=== PATIENT | female | born 1935 | race American Indian/Alaskan Native ===

== ENCOUNTER 2021-06-08 09:02 | Inpatient (IN) | payer MEDICARE ==
--- NOTE | 2021-06-08 09:32 | Emergency Department Report ---
Blank Doc - Documentation Documentation: [facility] Consult Note # Demographics Consult Type: Acute Stroke Level 2 (4.5-24 hrs) Patient Location: Emergency Room First Name: Sharona Last Name: Tres Date of : 1935 Age: 85 Gender: Female Time of Initial Page ( Time): 06/08/2021, 09:11 Time of Return Call ( Time): 06/08/2021, 09:11 # HPI History: 85yo F presents ith AMS that was noted this AM. She was found with low glucose of 40. got some food and glucose improved to the 60s. # Scores Time of exam and NIHSS ( Time): 06/08/2021, 09:27 Level of Consciousness 1a: [0] = Alert; keenly responsive LOC Questions 1b: [2] = Answers neither correctly LOC Commands 1c: [2] = Performs neither correctly Best Gaze 2: [0] = Normal Visual 3: [0] = No visual loss Facial Palsy 4: [0] = Normal symmetrical movements Motor Arm Left 5a: [1] = Drift Motor Arm Right 5b: [1] = Drift Motor Leg Left 6a: [3] = No effort against gravity Motor Leg Right 6b: [3] = No effort against gravity Limb Ataxia 7: [0] = Absent Sensory 8: [0] = Normal Best Language 9: [2] = Severe aphasia Dysarthria 10: [1] = Pvpl-ay-cmcgcedx dysarthria Extinction and Inattention 11: [0] = No abnormality NIHSS Total: 15 # Exam SBP: 90 DBP: 60 Language: only yelling "there is a god" # PMH-FH-SH Past Medical History: Diabetes hypertension # Data Head CT: no bleed preliminarily reviewed by me, please refer to radiology read for official reading # Assessment Impression: Altered Mental Status hypoglycemia likely with prolonged encephalopathy. no lateralized deficits to suggest sttroke at this time # Plan Thrombolytic/Intervention: NOT IV Thrombolysis or IA Intervention candidate Thrombolytic Exclusion (< 3 hour window): time of onset unclear Thrombolytic Exclusion: > 4.5 hours Thrombolytic/Intraarterial Exclusion: IV thrombolytic and IA intervention considered but not recommended as this patient's symptoms are not clinically consistent with an assumed diagnosis of stroke Additional Recommendations: Metabolic and infectious evaluation. If no cause found then MRI brain for further eval is reasonable # Logistics Telemedicine: Interactive 2 way audio and visual telecommunication technology was utilized during this visit
--- NOTE | 2021-06-08 09:35 | Cat Scan Report ---
CT HEAD WITHOUT CONTRAST HISTORY: CODE STROKE CALL [phone] WEAKNESS, AMS, LOW BLOOD SUGAR. TECHNIQUE: Axial imaging performed from the skull apex through the skull base without the use of con trast. All CT scans at this location are performed using CT dose reduction for ALARA by means of aut omated exposure control. COMPARISON: None FINDINGS: Parenchyma: No acute intracranial hemorrhage or parenchymal abnormality. Mild diffuse volume loss ap pears age appropriate. Mild hypoattenuation throughout the white matter is noted and consistent with chronic microvascular ischemic disease. Ventricles: There is mild diffuse brain atrophy with commensurate ventricular enlargement which is l ikely age appropriate. Soft tissues: Soft tissues including the orbits appear normal. Bones: No acute osseous abnormality. Sinuses: Moderate chronic mucosal thickening is noted in the left axillary sinus and the remaining s inuses and mastoid air cells are clear. IMPRESSION: No acute abnormality. Age-related findings as described. Chronic left maxillary sinus. CODE STROKE: Time of Communication (INDEPENDENT DRIVER/CDT): 0830 hours Licensed Practitioner Receiving Report: GABY Vasquez Signer Name: Aleksey Hays Jr, MD Signed: 06/08/2021 9:31 AM Workstation Name: [id number]
--- NOTE | 2021-06-08 09:44 | Emergency Department Report ---
HPI - General Chief Complaint: Neuro Symptoms/Deficit Time Seen by Provider: 06/08/21 09:05 - HPI HPI: 85-year-old female with history of hypertension diabetes mellitus is brought in by EMS with acute onset of altered mental status after the patient was found down on the ground by her family. Her last known normal time was apparently sometime last night. Her baseline mental status is speaking in full sentences normally. Family called because the patient was speaking incoherently and not making sense. According to the EMS report, the initial glucose was 66. She was given 1 amp of D50 with improvement to the blood sugar to 501 and then 193. This did not affect the patient's altered mental status or inability to follow commands including her mental/neurologic condition.. The patient intermittently speaks in full sentences and tells me her full name but cannot answer any other questions. Further details of the HPI are thus limited due to the patient's current clinical condition ED Past Medical Hx - Past Medical History Previous Medical History?: Yes Hx Hypertension: Yes Hx Diabetes: Yes - Surgical History Past Surgical History?: No ED Review of Systems ROS: Stated complaint: STROKE Other details as noted in HPI Comment: Unobtainable due to pts medical conditions Physical Exam - Physical Exam Vital Signs: Vital Signs 06/08/21 09:04 Pulse Rate 82 Respiratory 16 Rate Blood Pressure 108/67 [Left] O2 Sat by Pulse 96 Oximetry Physical Exam: GENERAL: Well developed and well nourished. In no acute distress. Very confused and speaking incoherently. HEAD: Normocephalic. No obvious signs of trauma. ENT: Dry mucous membranes. EYES: Extraocular movements are intact. Pupils are equal round and reactive to light bilaterally NECK: Supple. Full ROM is intact. Trachea is midline. LUNGS: Nonlabored breathing. Equal chest rise bilaterally. Clear to auscultation bilaterally. CARDIOVASCULAR: Regular rate and rhythm. No murmurs or rubs. VASCULAR: Cap refill < 2 seconds ABDOMEN: Abdomen is distended but soft. There is no significant tenderness, guarding, or rebound. SKIN: Skin is warm and dry NEURO: Patient is awake and alert, but very confused and speaking incoherently. She is not following commands which makes neurologic assessment very difficult. She is holding her hands out in front of her with rigidity of the bilateral arms. There is no obvious facial droop. Unable to assess motor function but she is seen moving all 4 extremities. NIH stroke scale score is 5. BACK/SPINE: No midline tenderness or step-offs of the C/T/L spine. No costovertebral angle tenderness. ED Course Vital Signs 06/08/21 09:04 Pulse Rate 82 Respiratory 16 Rate Blood Pressure 108/67 [Left] O2 Sat by Pulse 96 Oximetry ED Medical Decision Making - Lab Data Result diagrams: 06/08/21 09:47 06/08/21 09:47 Lab Results 06/08/21 06/08/21 06/08/21 Range/Units 09:47 09:47 09:47 WBC 5.8 (4.5-11.0) K/mm3 RBC 3.56 L (3.65-5.03) M/mm3 Hgb 12.4 (11.8-15.2) gm/dl Hct 36.1 (35.5-45.6) % MCV 101 H (84-94) fl MCH 35 H (28-32) pg MCHC 34 (32-34) % RDW 13.3 (13.2-15.2) % Plt Count 173 (140-440) K/mm3 Lymph % (Auto) 8.6 L (13.4-35.0) % [place] % (Auto) 8.5 H (0.0-7.3) % Eos % (Auto) 1.6 (0.0-4.3) % Baso % (Auto) 0.3 (0.0-1.8) % Lymph # (Auto) 0.5 L (1.2-5.4) K/mm3 [place] # (Auto) 0.5 (0.0-0.8) K/mm3 Eos # (Auto) 0.1 (0.0-0.4) K/mm3 Baso # (Auto) 0.0 (0.0-0.1) K/mm3 Seg Neutrophils % 81.0 H (40.0-70.0) % Seg Neutrophils # 4.7 (1.8-7.7) K/mm3 PT 13.4 (12.2-14.9) Sec. INR 0.97 (0.87-1.13) APTT 32.6 (24.2-36.6) Sec. Thrombin Time 16.7 (15.1-19.6) Sec. Sodium 123 L (137-145) mmol/L Potassium 5.3 H (3.6-5.0) mmol/L Chloride 84.3 L (98-107) mmol/L Carbon Dioxide 28 (22-30) mmol/L Anion Gap 16 mmol/L BUN 33 H (9-20) mg/dL Creatinine 0.6 L (0.8-1.3) mg/dL Estimated GFR > 60 ml/min BUN/Creatinine Ratio 55 % Glucose 220 H (75-100) mg/dL Calcium 10.0 (8.4-10.2) mg/dL Magnesium (1.7-2.3) mg/dL Total Bilirubin 0.40 (0.1-1.2) mg/dL AST 63 H (5-40) units/L ALT 58 H (7-56) units/L Alkaline Phosphatase 116 (35-129) units/L Ammonia (25-60) umol/L Total Creatine Kinase 256 H (55-170) units/L CK-MB (CK-2) 14.2 H (0.0-4.0) ng/mL CK-MB (CK-2) Rel Index 5.5 H (0-4) Troponin T 0.032 H (0.00-0.029) ng/mL Total Protein 7.7 (6.3-8.2) g/dL Albumin 4.3 (3.9-5) g/dL Albumin/Globulin Ratio 1.3 % Triglycerides 57 (2-149) mg/dL Cholesterol 166 (50-199) mg/dL LDL Cholesterol Direct 63 (50-130) mg/dL HDL Cholesterol 108 H (40-59) mg/dL Cholesterol/HDL Ratio 1.53 % Lipase (13-60) units/L Salicylates (2.8-20.0) mg/dL Acetaminophen (10.0-30.0) ug/mL Plasma/Serum Alcohol (0-0.07) % 06/08/21 06/08/21 06/08/21 Range/Units 09:47 09:47 09:47 WBC (4.5-11.0) K/mm3 RBC (3.65-5.03) M/mm3 Hgb (11.8-15.2) gm/dl Hct (35.5-45.6) % MCV (84-94) fl MCH (28-32) pg MCHC (32-34) % RDW (13.2-15.2) % Plt Count (140-440) K/mm3 Lymph % (Auto) (13.4-35.0) % [place] % (Auto) (0.0-7.3) % Eos % (Auto) (0.0-4.3) % Baso % (Auto) (0.0-1.8) % Lymph # (Auto) (1.2-5.4) K/mm3 [place] # (Auto) (0.0-0.8) K/mm3 Eos # (Auto) (0.0-0.4) K/mm3 Baso # (Auto) (0.0-0.1) K/mm3 Seg Neutrophils % (40.0-70.0) % Seg Neutrophils # (1.8-7.7) K/mm3 PT (12.2-14.9) Sec. INR (0.87-1.13) APTT (24.2-36.6) Sec. Thrombin Time (15.1-19.6) Sec. Sodium (137-145) mmol/L Potassium (3.6-5.0) mmol/L Chloride (98-107) mmol/L Carbon Dioxide (22-30) mmol/L Anion Gap mmol/L BUN (9-20) mg/dL Creatinine (0.8-1.3) mg/dL Estimated GFR ml/min BUN/Creatinine Ratio % Glucose (75-100) mg/dL Calcium (8.4-10.2) mg/dL Magnesium 1.80 (1.7-2.3) mg/dL Total Bilirubin (0.1-1.2) mg/dL AST (5-40) units/L ALT (7-56) units/L Alkaline Phosphatase (35-129) units/L Ammonia 32.0 (25-60) umol/L Total Creatine Kinase (55-170) units/L CK-MB (CK-2) (0.0-4.0) ng/mL CK-MB (CK-2) Rel Index (0-4) Troponin T (0.00-0.029) ng/mL Total Protein (6.3-8.2) g/dL Albumin (3.9-5) g/dL Albumin/Globulin Ratio % Triglycerides (2-149) mg/dL Cholesterol (50-199) mg/dL LDL Cholesterol Direct (50-130) mg/dL HDL Cholesterol (40-59) mg/dL Cholesterol/HDL Ratio % Lipase 12 L (13-60) units/L Salicylates (2.8-20.0) mg/dL Acetaminophen (10.0-30.0) ug/mL Plasma/Serum Alcohol < 0.01 (0-0.07) % 06/08/21 06/08/21 Range/Units 09:47 09:47 WBC (4.5-11.0) K/mm3 RBC (3.65-5.03) M/mm3 Hgb (11.8-15.2) gm/dl Hct (35.5-45.6) % MCV (84-94) fl MCH (28-32) pg MCHC (32-34) % RDW (13.2-15.2) % Plt Count (140-440) K/mm3 Lymph % (Auto) (13.4-35.0) % [place] % (Auto) (0.0-7.3) % Eos % (Auto) (0.0-4.3) % Baso % (Auto) (0.0-1.8) % Lymph # (Auto) (1.2-5.4) K/mm3 [place] # (Auto) (0.0-0.8) K/mm3 Eos # (Auto) (0.0-0.4) K/mm3 Baso # (Auto) (0.0-0.1) K/mm3 Seg Neutrophils % (40.0-70.0) % Seg Neutrophils # (1.8-7.7) K/mm3 PT (12.2-14.9) Sec. INR (0.87-1.13) APTT (24.2-36.6) Sec. Thrombin Time (15.1-19.6) Sec. Sodium (137-145) mmol/L Potassium (3.6-5.0) mmol/L Chloride (98-107) mmol/L Carbon Dioxide (22-30) mmol/L Anion Gap mmol/L BUN (9-20) mg/dL Creatinine (0.8-1.3) mg/dL Estimated GFR ml/min BUN/Creatinine Ratio % Glucose (75-100) mg/dL Calcium (8.4-10.2) mg/dL Magnesium (1.7-2.3) mg/dL Total Bilirubin (0.1-1.2) mg/dL AST (5-40) units/L ALT (7-56) units/L Alkaline Phosphatase (35-129) units/L Ammonia (25-60) umol/L Total Creatine Kinase (55-170) units/L CK-MB (CK-2) (0.0-4.0) ng/mL CK-MB (CK-2) Rel Index (0-4) Troponin T (0.00-0.029) ng/mL Total Protein (6.3-8.2) g/dL Albumin (3.9-5) g/dL Albumin/Globulin Ratio % Triglycerides (2-149) mg/dL Cholesterol (50-199) mg/dL LDL Cholesterol Direct (50-130) mg/dL HDL Cholesterol (40-59) mg/dL Cholesterol/HDL Ratio % Lipase (13-60) units/L Salicylates < 0.3 L (2.8-20.0) mg/dL Acetaminophen 5.0 L (10.0-30.0) ug/mL Plasma/Serum Alcohol (0-0.07) % - EKG Data -: EKG Interpreted by Mo - EKG Data 06/08/21 12:09 Normal sinus rhythm. Normal axis. Right bundle branch block. First-degree AV block. Otherwise normal intervals. RBBB associated changes. Otherwise no significant ST segment or T wave abnormalities. - Radiology Data CHEST 1 VIEW INDICATION: stroke. COMPARISON: None FINDINGS: Support devices: None. Heart: Cardiomegaly. Lungs/Pleura: No acute air space or interstitial disease. Additional findings: None. IMPRESSION: Moderate cardiomegaly. Signer Name: Aleksey Hays Jr, MD Signed: 06/08/2021 10:13 AM Workstation Name: [id number] R pelvis 1-2V INDICATION / CLINICAL INFORMATION: fall. Pelvic pain COMPARISON: None available. FINDINGS: BONES/JOINT(S): No acute fracture or subluxation. Mild bilateral hip DJD. SOFT TISSUES: Scattered atherosclerotic vascular calcifications. ADDITIONAL FINDINGS: None. Signer Name: Ismael Arellano MD Signed: 06/08/2021 12:03 PM Workstation Name: [id number] DUPLEX DOPPLER LOWER EXTREMITY VEINS, BILATERAL INDICATION / CLINICAL INFORMATION: Bilateral lower extremity swelling. TECHNIQUE: Duplex doppler imaging was performed through the veins of both lower extremities using venous compression and other maneuvers. COMPARISON: None available. FINDINGS: RIGHT COMMON FEMORAL VEIN: Negative. RIGHT FEMORAL VEIN: Negative. RIGHT POPLITEAL V EIN: Negative. RIGHT CALF VEINS: Negative. LEFT COMMON FEMORAL VEIN: Negative. LEFT FEMORAL VEIN: Negative. LEFT POPLITEAL VEIN: Negative. LEFT CALF VEINS: Negative. ADDITIONAL FINDINGS: None. IMPRESSION: 1. No sonographic evidence for DVT in either lower extremity. Signer Name: Ron Majano MD Signed: 06/08/2021 10:42 AM Workstation Name: [id number] CT HEAD WITHOUT CONTRAST HISTORY: CODE STROKE CALL [phone] WEAKNESS, AMS, LOW BLOOD SUGAR. TECHNIQUE: Axial imaging performed from the skull apex through the skull base without the use of contrast. All CT scans at this location are performed using CT dose reduction for ALARA by means of automated exposure control. COMPARISON: None FINDINGS: Parenchyma: No acute intracranial hemorrhage or parenchymal abnormality. Mild diffuse volume loss appears age appropriate. Mild hypoattenuation throughout the white matter is noted and cons istent with chronic microvascular ischemic disease. Ventricles: There is mild diffuse brain atrophy with commensurate ventricular enlargement which is likely age appropriate. Soft tissues: Soft tissues including the orbits appear normal. Bones: No acute osseous abnormality. Sinuses: Moderate chronic mucosal thickening is noted in the left axillary sinus and the remaining sinuses and mastoid air cells are clear. IMPRESSION: No acute abnormality. Age-related findings as described. Chronic left maxillary sinus. CODE STROKE: Time of Communication (FINISHED GOODS PLANNER/CDT): 0830 hours Licensed Practitioner Receiving Report: GABY Vasquez Signer Name: Aleksey Hays Jr, MD Signed: 06/08/2021 8:31 AM Workstation Name: [id number] CT CERVICAL SPINE WITHOUT CONTRAST INDICATION / CLINICAL INFORMATION: stroke/fall . TECHNIQUE: Axial CT images were obtained through the cervical spine. Sagittal and coronal reformatted images were produced. All CT scans at this location are performed using CT dose reduction for ALARA by means of automated exposure control. COMPARISON: None available. FINDINGS: ALIGNMENT: No significant abnormality. VERTEBRAE: No indication of fracture or bone destruction. Widespread degenerative changes as described below. DISC SPACES: Loss of disc height is a prominent finding at the C5-6, C6-7 and C7-T1 levels. INDIVIDUAL LEVEL ANALYSIS: C2-3:No abnormality. C3-4: There is a moderate central and right paracentral disc herniation with thecal sac deformity. Mild bilateral neuroforaminal narrowing is noted. C4-5: Posterior disc osteophyte complex flattens the thecal sac slightly. uncovertebral arthritic change contributes to moderate right-sided and mild left-sided neuroforaminal stenosis. C5-6:Disc desiccation is noted. Loss of disc height and disc vacuum phenomena are evident. Posterior osteophyte lateralizes to the left contributing to left lateral recess stenosis. Moderate bilateral neuroforaminal narrowing is observed. C6-7: Loss of disc height and disc vacuum phenomena are noted. Small posterior osteophyte is observed. Prominent anterior osteophyte formation is evident. uncovertebral arthritic change contribute to severe right-sided and moderate left-sided foraminal stenosis. C7-T1: Loss of disc height is noted. Anterior osteophyte formation is observed. Central spinal canal and neuroforamina are adequately maintained. CRANIOCERVICAL JUNCTION:No signif icant abnormality. SPINAL CANAL: Central spinal canal is mildly narrowed at C3- 4 where moderate central and right paracentral disc herniation is demonstrated and at the C4-5 where large posterior osteophyte lateralizes to the left. PARASPINAL SOFT TISSUES: No significant abnormality. LUNG APICES: No significant abnormality of visualized lungs. IMPRESSION: 1. Widespread cervical spondylosis as described level bilevel above. 2. No indication of fracture or bone destruction. Signer Name: Toñito Cavanaugh MD Signed: 06/08/2021 8:47 AM Workstation Name: [id number] - Medical Decision Making 85-year-old female with reported history of hypertension and diabetes brought in by EMS after she was found down on the ground with altered mental status. She was apparently seen last normal sometime last night. The patient was profoundly altered when discovered by her family. Her initial glucose was apparently 66 when EMS arrived and improved to the 500s and then high 100s after 1 amp of D50. On initial assessment, the patient is afebrile and with normal vital signs. She is profoundly altered and speaking incoherently. She only partially and intermittently follows commands. She is holding her extremities stiff in front of her. Given that she is uncooperative with exam this severely limits the neurologic exam. Nonetheless, given how altered she is in the fact that this is apparently acute, stroke alert orders were initiated immediately in addition to tox/metabolic and syncope work-up. She does have right greater than left lower extremity edema. Her abdomen is distended but soft. There is no mid spine or CVA tenderness. Lungs are clear to auscultation. She does have very dry mucous membranes. Given that she is elderly and may have suffered a fall, we will obtain CT of the head and C-spine to rule out traumatic injury including ICH and cervical fracture. At 0931, Dr. Hays of radiology called to state that CT of the head and C-spine are negative for any acute abnormalities. On repeat assessment at 10 AM, the patient is now more responsive and follows most commands. On repeat assessment at 1015, the patient has become very agitated and is yelling and attempting to pull off her monitors and lines. Given that she is a danger to herself she was administered 5 mg of IM Haldol and 25 mg of IM Benadryl. The patient's labs have partially resulted and reveal no significant leukocytosis or anemia. She has several electrolyte abnormalities including hyponatremia with sodium of 123, hyperkalemia with potassium of 5.3, elevated BUN of 33 with creatinine of 0.6 most consistent with severe dehydration and poor volume status. She has minor elevations in AST and ALT as well. Alk phos is normal. Her troponin is very mildly elevated at 0.032. Given that there is no history of the patient having chest pain and there is evidence of very poor fluid status, I suspect that her troponin leak is a type II troponin leak secondary to her current condition. We will give full-strength aspirin. EKG was ordered and I asked the nurse to obtain it soon as possible. At [address] Fiore of teleneurology. She has seen and examined the patient and agrees that although stroke cannot be ruled out completely, her presentation is more consistent with a metabolic encephalopathy given that she has no lateral signs. Not eligible for TPA. At 11:20 AM, I spoke to the patient's daughter Mary Anne. She provides further history and states that this morning she found her mom on the commode with altered mental status and acting very bizarre. She does have a history of dementia and frequent UTIs and has had issues with worsening mental status due to UTIs in the past. When she got her mom with altered mental status, she was able to get her mom to drink some juice and measured her blood sugar and it was 40. She was given more juice and food and repeat blood sugar was 35. Several hours went by and they rechecked it and it was 40. For this reason EMS was then called and when they arrived there initial blood glucose was 60. In addition to insulin the patient does take Metformin and glipizide as well. With this additional information, it seems that her altered mental status is much more likely to be secondary to hypoglycemia and metabolic disturbance due to severe dehydration. We will continue to monitor the patient's glucose every hour. She will be admitted to the hospitalist for further work-up and management. Uri nalysis is still pending. On repeat assessment at 11:35 AM, the patient is now resting comfortably in bed. She is somnolent but arouses to loud voice. She now answers my questions and follows my commands. She denies any pain, shortness of breath, cough, abdominal pain, nausea, or any other symptoms. She is moving all 4 extremities with normal strength and says she has normal sensation. At 12:07 PM I spoke with Dr. Ahn, the only call hospitalist regarding the case. He accepts the patient for admission and will assume care. Critical Care Time: Yes Critical care time in (mins) excluding proc time.: 80 Critical care attestation.: If time is entered above; I have spent that time in minutes in the direct care of this critically ill patient, excluding procedure time. Critical care time was spent in the evaluation/assessment, work-up, and management of possible stroke with altered mental status, hypoglycemia with frequent glucose monitoring, severe dehydration and electrolyte abnormalities requiring IV fluids, altered mental status with agitated behavior requiring IV Haldol, coordination with specialist, and frequent reevaluation and reassessment. ED Disposition Clinical Impression: Hypoglycemia, Altered mental state, Elevated troponin, Dehydration, Hyponatremi a, Hyperkalemia, Dementia, Transaminitis Disposition: DC-09 OP ADMIT IP TO THIS HOSP Is pt being admited?: Yes Condition: Fair
--- NOTE | 2021-06-08 09:52 | Cat Scan Report ---
CT CERVICAL SPINE WITHOUT CONTRAST INDICATION / CLINICAL INFORMATION: stroke/fall . TECHNIQUE: Axial CT images were obtained through the cervical spine. Sagittal and coronal reformatted images wer e produced. All CT scans at this location are performed using CT dose reduction for ALARA by means of automated exposure control. COMPARISON: None available. FINDINGS: ALIGNMENT: No significant abnormality. VERTEBRAE: No indication of fracture or bone destruction. Widespread degenerative changes as describe d below. DISC SPACES: Loss of disc height is a prominent finding at the C5-6, C6-7 and C7-T1 levels. INDIVIDUAL LEVEL ANALYSIS: C2-3:No abnormality. C3-4: There is a moderate central and right paracentral disc herniation with thecal sac deformity. Mi ld bilateral neuroforaminal narrowing is noted. C4-5: Posterior disc osteophyte complex flattens the thecal sac slightly. uncovertebral arthritic kel[place] nge contributes to moderate right-sided and mild left-sided neuroforaminal stenosis. C5-6:Disc desiccation is noted. Loss of disc height and disc vacuum phenomena are evident. Posterior osteophyte lateralizes to the left contributing to left lateral recess stenosis. Moderate bilateral n euroforaminal narrowing is observed. C6-7: Loss of disc height and disc vacuum phenomena are noted. Small posterior osteophyte is observed . Prominent anterior osteophyte formation is evident. uncovertebral arthritic change contribute to se juno right-sided and moderate left-sided foraminal stenosis. C7-T1: Loss of disc height is noted. Anterior osteophyte formation is observed. Central spinal canal and neuroforamina are adequately maintained. CRANIOCERVICAL JUNCTION:No significant abnormality. SPINAL CANAL: Central spinal canal is mildly narrowed at C3-4 where moderate central and right parace ntral disc herniation is demonstrated and at the C4-5 where large posterior osteophyte lateralizes to the left. PARASPINAL SOFT TISSUES: No significant abnormality. LUNG APICES: No significant abnormality of visualized lungs. IMPRESSION: 1. Widespread cervical spondylosis as described level bilevel above. 2. No indication of fracture or bone destruction. Signer Name: Toñito Cavanaugh MD Signed: 06/08/2021 9:47 AM Workstation Name: [id number]
[2021-06-08 10:03] LABS: Basophils % (Auto) 0.3 % (0.0-1.8); Eosinophils # (Auto) 0.1 K/mm3 (0.0-0.4); Eosinophils % (Auto) 1.6 % (0.0-4.3); Hematocrit 36.1 % (35.5-45.6); Hemoglobin 12.4 gm/dl (11.8-15.2); Lymphocytes # (Auto) 0.5 K/mm3 (1.2-5.4); Lymphocytes % (Auto) 8.6 % (13.4-35.0); Mean Corpuscular HGB Conc 34 % (32-34); Mean Corpuscular Volume 101 fl (84-94); Monocytes # (Auto) 0.5 K/mm3 (0.0-0.8); Monocytes % (Auto) 8.5 % (0.0-7.3); Platelet Count 173 K/mm3 (140-440); Red Blood Count 3.56 M/mm3 (3.65-5.03); Red Cell Distribution Width 13.3 % (13.2-15.2)
[2021-06-08] MEDS ORDERED: diphenhydrAMINE 50 MG/ML VIAL ONE (10:18)
[2021-06-08] MEDS ORDERED: HALOPERIDOL LACTATE 5 MG/1 ML INJ ONE (10:18)
[2021-06-08 10:24] LABS: Creatine Kinase MB 14.2 ng/mL (0.0-4.0)
[2021-06-08 10:25] LABS: INR 0.97 (0.87-1.13); Partial Thromboplastin Time 32.6 Sec. (24.2-36.6)
[2021-06-08 10:26] LABS: Alanine Aminotransferase 58 units/L (7-56); Albumin 4.3 g/dL (3.9-5); Blood Urea Nitrogen 33 mg/dL (9-20); Hemolysis Index 5
[2021-06-08 10:28] LABS: Thrombin Time 16.7 Sec. (15.1-19.6)
[2021-06-08 10:34] LABS: BUN/Creatinine Ratio 55
[2021-06-08 10:37] LABS: Chol/HDL Ratio 1.53 %; HDL Cholesterol 108 mg/dL (40-59); LDL Cholesterol,Direct 63 mg/dL (50-130)
[2021-06-08] MEDS ORDERED: ASPIRIN 325 MG TAB PO ONE (11:19)
--- NOTE | 2021-06-08 11:20 | XRay Report ---
CHEST 1 VIEW INDICATION: stroke. COMPARISON: None FINDINGS: Support devices: None. Heart: Cardiomegaly. Lungs/Pleura: No acute air space or interstitial disease. Additional findings: None. IMPRESSION: Moderate cardiomegaly. Signer Name: Aleksey Hays Jr, MD Signed: 06/08/2021 11:13 AM Workstation Name: [id number]
--- NOTE | 2021-06-08 11:47 | Vascular Lab Report ---
DUPLEX DOPPLER LOWER EXTREMITY VEINS, BILATERAL INDICATION / CLINICAL INFORMATION: Bilateral lower extremity swelling. TECHNIQUE: Duplex doppler imaging was performed through the veins of both lower extremities using venous antwon jaleesa and other maneuvers. COMPARISON: None available. FINDINGS: RIGHT COMMON FEMORAL VEIN: Negative. RIGHT FEMORAL VEIN: Negative. RIGHT POPLITEAL VEIN: Negative. RIGHT CALF VEINS: Negative. LEFT COMMON FEMORAL VEIN: Negative. LEFT FEMORAL VEIN: Negative. LEFT POPLITEAL VEIN: Negative. LEFT CALF VEINS: Negative. ADDITIONAL FINDINGS: None. IMPRESSION: 1. No sonographic evidence for DVT in either lower extremity. Signer Name: Ron Majano MD Signed: 06/08/2021 11:42 AM Workstation Name: [id number]
--- NOTE | 2021-06-08 12:07 | History and Physical Report ---
History of Present Illness Chief complaint: She is confused History of present illness: 85 YO Female with HTN, DM presents to ED for evaluation. Patient is confused and lethargic the time my evaluation is unable to provide history. Patient history taken from EMS staff, ED staff, as well as patient family who was made available by telephone for interview. As per family the patient was in her usual state of health around bedtime at 2100 hrs. Patient was found lying on the ground today by family member. Patient was confused. EMS was notified and upon arrival the patient was found to be in distress with a serum glucose of 66. Patient was treated with an amp of D50 and transported to [facility] for further care and evaluation of the aforementioned symptoms. The patient was seen and evaluated in the emergency department. All laboratory studies reviewed. Patient found to have metabolic encephalopathy, hyponatremia syndrome, volume depletion, as well as elevated cardiac enzymes consistent with type II NSTEMI. Patient admitted to telemetry and initiated on chest pain protocol due to increased risk of worsening symptoms. Cardiology team consulted. No reports of fever, chills, chest pain, palpitation, productive cough, skin rash, recent ill contacts, or known exposure to COVID-19. No prior admission for review. No medication listed at time of admission for reconciliation. Advanced care planning conducted in ED. Past History Past Medical History: diabetes, hypertension Past Surgical History: No surgical history, Other (Reviewed) Social history: single. denies: smoking, alcohol abuse, prescription drug abuse Family history: diabetes, hypertension Medications and Allergies Allergies Allergy/AdvReac Type Severity Reaction Status Date / Time No Known Allergies Allergy Verified 06/08/21 09:04 Review of Systems ROS unobtainable: due to mental status Exam - Constitutional Vitals: Temp Pulse Resp BP Pulse Ox 97.8 F 82 16 108/67 96 06/08/21 09:44 06/08/21 09:04 06/08/21 09:04 06/08/21 09:04 06/08/21 09:04 General appearance: Present: mild distress - EENT Eyes: Present: PERRL ENT: hearing decreased - Neck Neck: Present: supple, normal ROM - Respiratory Respiratory effort: normal Respiratory: bilateral: CTA - Cardiovascular Heart Sounds: Present: S1 & S2. Absent: rub, click - Extremities Extremities: pulses symmetrical, No edema Peripheral Pulses: within normal limits - Abdominal General gastrointestinal: Present: soft, non-tender, non-distended, normal bowel sounds Female genitourinary: Present: normal - Integumentary Integumentary: Present: clear, warm, dry - Musculoskeletal Musculoskeletal: generalized weakness - Psychiatric Psychiatric: no appropriate mood/affect, no intact judgment & insight, no memory intact - Neurologic Neurologic: CNII-XII intact, no focal deficits, moves all extremities, no gait normal HEART Score - HEART Score Troponin: Troponin T 0.032 ng/mL (0.00-0.029) H 06/08/21 09:47 Results - Labs CBC & Chem 7: 06/08/21 09:47 06/08/21 09:47 Labs: Abnormal lab results 06/08/21 06/08/21 06/08/21 Range/Units 09:47 09:47 09:47 RBC 3.56 L (3.65-5.03) M/mm3 MCV 101 H (84-94) fl MCH 35 H (28-32) pg Lymph % (Auto) 8.6 L (13.4-35.0) % [place] % (Auto) 8.5 H (0.0-7.3) % Lymph # (Auto) 0.5 L (1.2-5.4) K/mm3 Seg Neutrophils % 81.0 H (40.0-70.0) % Sodium 123 L (137-145) mmol/L Potassium 5.3 H (3.6-5.0) mmol/L Chloride 84.3 L (98-107) mmol/L BUN 33 H (9-20) mg/dL Creatinine 0.6 L (0.8-1.3) mg/dL Glucose 220 H (75-100) mg/dL AST 63 H (5-40) units/L ALT 58 H (7-56) units/L Total Creatine Kinase 256 H (55-170) units/L CK-MB (CK-2) 14.2 H (0.0-4.0) ng/mL CK-MB (CK-2) Rel Index 5.5 H (0-4) Troponin T 0.032 H (0.00-0.029) ng/mL HDL Cholesterol 108 H (40-59) mg/dL Lipase 12 L (13-60) units/L Salicylates (2.8-20.0) mg/dL Acetaminophen (10.0-30.0) ug/mL 06/08/21 06/08/21 Range/Units 09:47 09:47 RBC (3.65-5.03) M/mm3 MCV (84-94) fl MCH (28-32) pg Lymph % (Auto) (13.4-35.0) % [place] % (Auto) (0.0-7.3) % Lymph # (Auto) (1.2-5.4) K/mm3 Seg Neutrophils % (40.0-70.0) % Sodium (137-145) mmol/L Potassium (3.6-5.0) mmol/L Chloride (98-107) mmol/L BUN (9-20) mg/dL Creatinine (0.8-1.3) mg/dL Glucose (75-100) mg/dL AST (5-40) units/L ALT (7-56) units/L Total Creatine Kinase (55-170) units/L CK-MB (CK-2) (0.0-4.0) ng/mL CK-MB (CK-2) Rel Index (0-4) Troponin T (0.00-0.029) ng/mL HDL Cholesterol (40-59) mg/dL Lipase (13-60) units/L Salicylates < 0.3 L (2.8-20.0) mg/dL Acetaminophen 5.0 L (10.0-30.0) ug/mL Assessment and Plan - Patient Problems (1) NSTEMI (non-ST elevated myocardial infarction) Current Visit: Yes Status: Acute Plan to address problem: Chest pain protocol: Patient mated to telemetry, telemetry monitoring, serial cardiac enzymes, EKG, echocardiogram, cardiology team consulted. (2) Metabolic encephalopathy Current Visit: Yes Status: Acute Plan to address problem: CT head, neuro check, seizure precautions, aspiration precautions, fall precautions. (3) Hyponatremia syndrome Current Visit: Yes Status: Acute Plan to address problem: IV fluid resuscitation therapy, BMP, repeat BMP in a.m. to monitor serum sodium. (4) Hyperkalemia Current Visit: Yes Status: Acute Plan to address problem: BMP, repeat BMP in a.m., no EKG changes. (5) Volume depletion Current Visit: Yes Status: Acute Plan to address problem: IV fluid resuscitation therapy, BMP, repeat BMP in a.m. (6) DVT prophylaxis Current Visit: Yes Status: Acute Plan to address problem: SCD to bilateral lower extremities while in bed (7) Advance care planning Current Visit: Yes Status: Acute Plan to address problem: Disease education conducted, care plan discussed, diagnosis discussed, prognosis discussed, patient is full code, patient family acknowledges understanding and agree with care plan. +30 minutes.
[2021-06-08] MEDS ORDERED: traMADol 50 MG TAB PO PRN (12:48)
[2021-06-08] MEDS ORDERED: ASPIRIN 81 MG TAB CHEW PO STA (12:48)
[2021-06-08] MEDS ORDERED: ALBUTEROL 2.5 MG/3 ML NEBU IH PRN (13:00)
[2021-06-08] MEDS ORDERED: HYDROmorphone 1 MG/1 ML INJ IV PRN (13:00)
[2021-06-08] MEDS ORDERED: oxyCODONE /ACETAMINOPHEN 5-325MG TAB PO PRN (13:00)
[2021-06-08] MEDS ORDERED: ACETAMINOPHEN 325 MG TAB PO PRN ×2 (13:00)
[2021-06-08] MEDS ORDERED: ONDANSETRON 4 MG/2 ML INJ IV PRN (13:00)
--- NOTE | 2021-06-08 13:07 | XRay Report ---
XR pelvis 1-2V INDICATION / CLINICAL INFORMATION: fall. Pelvic pain COMPARISON: None available. FINDINGS: BONES/JOINT(S): No acute fracture or subluxation. Mild bilateral hip DJD. SOFT TISSUES: Scattered atherosclerotic vascular calcifications. ADDITIONAL FINDINGS: None. Signer Name: Ismael Arellano MD Signed: 06/08/2021 1:03 PM Workstation Name: [id number]
--- NOTE | 2021-06-08 16:59 | Consultation ---
History of Present Illness Consult date: 06/08/21 Consult reason: elevated troponin History of present illness: Patient is an 85 y/o female with a pmhx of HTN, DM, frequent UTIs, and dementia(at baseline can answer and speak in complete sentences) who was brought to the ED for AMS. At time of interview patient is altered and history is obtained per chart. Patient was found this AM on commode by daughter altered. The daughter checked the patients blood sugar which was 35. She then gave her food an drechecked blood sugar which only slightly improved to 40. EMS was then called. EMS gave patient 1 amp of d50 and rechecked BG which was found to be 501. In the ED the patients troponins were noted to be elevated 0.032 and cardiology was consulted Past History Past Medical History: diabetes, hypertension, other (dementia) Past Surgical History: No surgical history Social history: lives with family Family history: no significant family history Medications and Allergies Allergies Allergy/AdvReac Type Severity Reaction Status Date / Time No Known Allergies Allergy Verified 06/08/21 09:04 Active Meds: Active Medications Acetaminophen (Acetaminophen 325 Mg Tab) 650 mg PO Q6H PRN PRN Reason: Pain, Mild (1-3) Albuterol (Albuterol 2.5 Mg/3 Ml Nebu) 2.5 mg IH Q4HRT PRN PRN Reason: Shortness Of Breath Hydromorphone HCl (Hydromorphone 1 Mg/1 Ml Inj) 0.5 mg IV Q12H PRN PRN Reason: Pain , Severe (7-10) Sodium Chloride (Nacl 0.9% 1000 Ml) 1,000 mls @ 100 mls/hr IV DIRECT ANNA Ondansetron HCl (Ondansetron 4 Mg/2 Ml Inj) 4 mg IV Q8H PRN PRN Reason: Nausea And Vomiting Oxycodone/Acetaminophen (Oxycodone /Acetaminophen 5-325mg Tab) 1 tab PO Q12H PRN PRN Reason: Pain, Moderate (4-6) Sodium Chloride (Sodium Chloride 0.9% 10 Ml Flush Syringe) 10 ml IV BID ANNA Sodium Chloride (Sodium Chloride 0.9% 10 Ml Flush Syringe) 10 ml IV PRN PRN PRN Reason: LINE FLUSH Sodium Chloride (Sodium Chloride 0.9% 10 Ml Flush Syringe) 10 ml IV PRN PRN PRN Reason: LINE FLUSH Tramadol HCl (Tramadol 50 Mg Tab) 50 mg PO Q6H PRN PRN Reason: Pain, Moderate (4-6) Review of Systems ROS unobtainable: due to mental status Physical Examination Last Vital Signs Temp 97.8 F 06/08/21 09:44 Pulse 79 06/08/21 13:03 Resp 18 06/08/21 13:03 BP 196/86 06/08/21 13:03 Pulse Ox 97 06/08/21 13:03 General appearance: no acute distress HEENT: Positive: PERRL Neck: Positive: trachea midline Cardiac: Positive: Reg Rate and Rhythm, S1/S2 Lungs: Positive: clear to auscultation, Normal Breath Sounds Neuro: Positive: Other (unabel to assess) Abdomen: Positive: Active Bowel Sounds Skin: Negative: Rash, Suspicious Lesions, Ulceration Extremities: Present: upper extr. pulses, lower extr. pulses, edema, +1 Edema Results 06/08/21 09:47 06/08/21 09:47 Cardiac Enzymes 06/08/21 Range/Units 09:47 AST 63 H (5-40) units/L CK-MB (CK-2) 14.2 H (0.0-4.0) ng/mL Coagulation 06/08/21 Range/Units 09:47 PT 13.4 (12.2-14.9) Sec. INR 0.97 (0.87-1.13) APTT 32.6 (24.2-36.6) Sec. Lipids 06/08/21 Range/Units 09:47 Triglycerides 57 (2-149) mg/dL Cholesterol 166 (50-199) mg/dL HDL Cholesterol 108 H (40-59) mg/dL Cholesterol/HDL Ratio 1.53 % CBC 06/08/21 Range/Units 09:47 WBC 5.8 (4.5-11.0) K/mm3 RBC 3.56 L (3.65-5.03) M/mm3 Hgb 12.4 (11.8-15.2) gm/dl Hct 36.1 (35.5-45.6) % Plt Count 173 (140-440) K/mm3 Lymph # (Auto) 0.5 L (1.2-5.4) K/mm3 [place] # (Auto) 0.5 (0.0-0.8) K/mm3 Eos # (Auto) 0.1 (0.0-0.4) K/mm3 Baso # (Auto) 0.0 (0.0-0.1) K/mm3 Comprehensive Metabolic Panel 06/08/21 Range/Units 09:47 Sodium 123 L (137-145) mmol/L Potassium 5.3 H (3.6-5.0) mmol/L Chloride 84.3 L (98-107) mmol/L Carbon Dioxide 28 (22-30) mmol/L BUN 33 H (9-20) mg/dL Creatinine 0.6 L (0.8-1.3) mg/dL Glucose 220 H (75-100) mg/dL Calcium 10.0 (8.4-10.2) mg/dL AST 63 H (5-40) units/L ALT 58 H (7-56) units/L Alkaline Phosphatase 116 (35-129) units/L Total Protein 7.7 (6.3-8.2) g/dL Albumin 4.3 (3.9-5) g/dL - Imaging and Cardiology Echo: pending EKG: report reviewed, image reviewed EKG interpretations - Telemetry EKG Rhythm: Sinus Rhythm - EKG Sinus rhythms and dysrhythmias: sinus rhythm Assessment and Plan NSTEMI type II * Troponins noted to be mildly elevated but downtrending 0.032->0.025.EKG was normal sinus rhythm 87 with no signs of acute ischemic changes. AMI ruled out * Will trend CE. * Echo pending Altered mental status in setting of hypoglycemia * Patient has hx of DM and found to be very hypoglycemic * Manage per primary team Patient seen in conjunction with Dr. Jaguar Stewart will continue to follow - Patient Problems (1) Altered mental state Current Visit: Yes Status: Acute (2) Dehydration Current Visit: Yes Status: Acute (3) Dementia Current Visit: Yes Status: Acute (4) Elevated troponin Current Visit: Yes Status: Acute (5) Hyperkalemia Current Visit: Yes Status: Acute (6) Hypoglycemia Current Visit: Yes Status: Acute (7) Hyponatremia Current Visit: Yes Status: Acute
--- NOTE | 2021-06-08 18:15 | Electrocardiograph Report ---
[facility] Test Date: 2021-06-08 Test Time: 11:57:58 Pat Name: FRANK GONAZLEZJerseyLIZA Department: Room: [facility] Gender: F Ancillary Specialist: MARTHA : 1935 Requested By: ROSELIA GO Order Number: [id number] Reading MD: Mendez Salmeron Measurements Intervals [place] Rate: 87 P: 16 OH: 213 QRS: -5 QRSD: 146 T: 14 QT: 424 QTc: 510 Interpretive Statements Sinus rhythm Borderline prolonged OH interval Right bundle branch block No previous ECG available for comparison Electronically Signed On 06-08-2021 18:14:40 EDT by Mendez Salmeron
[2021-06-09 06:08] LABS: Basophils % (Auto) 0.8 % (0.0-1.8); Eosinophils # (Auto) 0.3 K/mm3 (0.0-0.4); Eosinophils % (Auto) 8.1 % (0.0-4.3); Hemoglobin 10.7 gm/dl (10.1-14.3); Lymphocytes # (Auto) 1.1 K/mm3 (1.2-5.4); Lymphocytes % (Auto) 31.6 % (13.4-35.0); Mean Corpuscular HGB Conc 35 % (30-34); Mean Corpuscular Volume 101 fl (79-97); Monocytes # (Auto) 0.4 K/mm3 (0.0-0.8); Monocytes % (Auto) 10.9 % (0.0-7.3); Platelet Count 159 K/mm3 (140-440); Red Blood Count 3.06 M/mm3 (3.65-5.03); Red Cell Distribution Width 13.2 % (13.2-15.2)
[2021-06-09 06:12] LABS: Alanine Aminotransferase 41 units/L (7-56); Albumin 3.2 g/dL (3.9-5); Blood Urea Nitrogen 24 mg/dL (7-17); Calcium 9.2 mg/dL (8.4-10.2); Hemolysis Index 5
[2021-06-09 06:13] LABS: BUN/Creatinine Ratio 48
[2021-06-09 07:23] LABS: Amphetamine Screen,Urine PRESUMPTIVE NEGATIVE; Benzodiazepines Screen,Urine PRESUMPTIVE NEGATIVE; Cannabinoid Screen,Urine PRESUMPTIVE NEGATIVE; Cocaine Screen,Urine PRESUMPTIVE NEGATIVE; Methadone Screen,Urine PRESUMPTIVE NEGATIVE; Opiate Screen,Urine PRESUMPTIVE NEGATIVE
[2021-06-09 07:25] LABS: Bacteria,Urine 2+ /HPF (Negative); Bilirubin,Urine NEG (Negative); Blood,Urine NEG (Negative); Color,Urine Straw (Yellow); Protein,Urine <15 mg/dL mg/dL (Negative); Urobilinogen,Urine < 2.0 mg/dL (<2.0); WBC,Urine < 1.0 /HPF (0.0-6.0)
[2021-06-09] MEDS: SODIUM CHLORIDE 0.9% 1000 ML 1,000 ML IV SCH ×2 (09:01→19:15)
--- NOTE | 2021-06-09 12:02 | Progress Note ---
Assessment and Plan NSTEMI type II * Troponins noted to be mildly elevated but downtrending 0.032->0.025->0.023. EKG was normal sinus rhythm 87 with no signs of acute ischemic changes. AMI ruled out * Patient sinus rhythm on monitor with no events * Echo 06/08/2021-EF 55 to 60%, mild aortic regurgitation, mild mitral regurgitation, right ventricular systolic function is normal Altered mental status in setting of hypoglycemia * Patient has hx of DM and found to be very hypoglycemic * Manage per primary team Due to patients age and comorbidities recommend conservative management. Patient seen in conjunction with Dr. Jaguar Stewart will continue to follow - Patient Problems (1) Altered mental state Current Visit: Yes Status: Acute (2) Dehydration Current Visit: Yes Status: Acute (3) Dementia Current Visit: Yes Status: Acute (4) Elevated troponin Current Visit: Yes Status: Acute (5) Hyperkalemia Current Visit: Yes Status: Acute (6) Hypoglycemia Current Visit: Yes Status: Acute (7) Hyponatremia Current Visit: Yes Status: Acute Subjective Date of service: 06/09/21 Principal diagnosis: Stroke Interval history: Patient sitting in bed and is more alert and oriented today. She has no complaints of chest pain or SOB Sinus 70s with no events on monitor Objective Last Vital Signs Temp 97.9 F 06/09/21 08:49 Pulse 65 06/09/21 08:49 Resp 18 06/09/21 08:49 BP 152/63 06/09/21 08:49 Pulse Ox 95 06/09/21 08:49 - Physical Examination General: No Apparent Distress HEENT: Positive: PERRL Neck: Positive: trachea midline Cardiac: Positive: Reg Rate and Rhythm, S1/S2 Lungs: Positive: clear to auscultation, Normal Breath Sounds Neuro: Positive: Grossly Intact Abdomen: Positive: Soft, Active Bowel Sounds Skin: Negative: Rash, Suspicious Lesions, Ulceration Extremities: Present: upper extr. pulses, lower extr. pulses, edema, +1 Edema (RLE) - Labs and Meds Cardiac Enzymes 06/09/21 Range/Units 05:00 AST 45 H (5-40) units/L CBC 06/09/21 Range/Units 05:00 WBC 3.5 L (4.5-11.0) K/mm3 RBC 3.06 L (3.65-5.03) M/mm3 Hgb 10.7 (10.1-14.3) gm/dl Hct 31.0 (30.3-42.9) % Plt Count 159 (140-440) K/mm3 Lymph # (Auto) 1.1 L (1.2-5.4) K/mm3 [place] # (Auto) 0.4 (0.0-0.8) K/mm3 Eos # (Auto) 0.3 (0.0-0.4) K/mm3 Baso # (Auto) 0.0 (0.0-0.1) K/mm3 Comprehensive Metabolic Panel 06/09/21 Range/Units 05:00 Sodium 131 L D (137-145) mmol/L Potassium 4.5 (3.6-5.0) mmol/L Chloride 94.1 L (98-107) mmol/L Carbon Dioxide 32 H (22-30) mmol/L BUN 24 H (7-17) mg/dL Creatinine 0.5 L (0.6-1.2) mg/dL Glucose 167 H (65-100) mg/dL Calcium 9.2 (8.4-10.2) mg/dL AST 45 H (5-40) units/L ALT 41 (7-56) units/L Alkaline Phosphatase 88 (35-129) units/L Total Protein 5.8 L D (6.3-8.2) g/dL Albumin 3.2 L (3.9-5) g/dL - Imaging and Cardiology EKG: report reviewed, image reviewed Echo: pending, report reviewed - Telemetry EKG Rhythm: Sinus Rhythm - EKG Sinus rhythms and dysrhythmias: sinus rhythm
--- NOTE | 2021-06-09 17:20 | Progress Note ---
Assessment and Plan - Patient Problems (1) Advance care planning Current Visit: Yes Status: Acute Plan to address problem: Spoke about advance care planning with family. Symptoms has resolved patient full code. (2) Dehydration Current Visit: Yes Status: Acute Plan to address problem: Volume depletion acute on chronic renal sufficiency secondary to prerenal azotemia patient has had some improvement with prerenal azotemia creatinine has gone from 33 and 0.6-24.5. We will give an additional 24 hours IV fluid anticipated discharge in a.m. (3) Dementia Current Visit: Yes Status: Acute Plan to address problem: Minimal cognitive impairment. 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 Patient alert oriented able to make needs known. (4) Elevated troponin Current Visit: Yes Status: Acute (5) Hyponatremia Current Visit: Yes Status: Acute Plan to address problem: Patient hyponatremia corrected with gentle use of IV volume replacement with normal saline. (6) Metabolic encephalopathy Current Visit: Yes Status: Acute Plan to address problem: At this point most likely secondary to hypoglycemia. Patient had unremarkable CT scan. Unremarkable cervical CT except for cervical spondylosis. This was done to evaluate fall. Metabolic encephalopathy has resolved. Patient has been ruled out for TX does have hyponatremia which could be playing some role however the acuity of the encephalopathy leads me believe this is from hypoglycemia. Will observe blood sugar for 24 hours. Current Accu-Cheks 123 and 131. (7) NSTEMI (non-ST elevated myocardial infarction) Current Visit: Yes Status: Acute Plan to address problem: Slight elevation in cardiac isoenzymes has now returned back to normal.. Patient ruled out for acute TX. Echocardiogram ejection fraction 55 to 60%. EKG normal Subjective Date of service: 06/09/21 Principal diagnosis: Stroke Interval history: 85-year-old female with a history of hypertension diabetes dementia presented with acute episode of lethargy and confusion. Patient found on the ground by toilet. Upon presentation to the ED patient was found to have metabolic encephalopathy with hyponatremia volume depletion and increased cardiac isoenzymes. Of note patient's blood sugar was found to be 35 upon initial presentation with emergency services. Patient now upon presentation with me is alert oriented x3. Patient able to make needs known. Has mild cognitive impairment at best. Clearly not lethargic and not confused. This leads to most likely etiology of hypoglycemia once acute TX has been ruled out. Attempts to call Jerrellno Angel family member phone number is not working [phone] Objective - Constitutional Vitals: Vital Signs - 12hr 06/09/21 06/09/21 06/09/21 06:00 07:15 08:45 Temperature Pulse Rate 58 L 74 Pulse Rate [ From Monitor] Respiratory Rate Blood Pressure Blood Pressure [Left] O2 Sat by Pulse 97 Oximetry 06/09/21 06/09/21 06/09/21 08:49 14:00 15:15 Temperature 97.9 F 98.0 F Pulse Rate 65 73 Pulse Rate [ 68 From Monitor] Respiratory 18 18 18 Rate Blood Pressure 143/54 Blood Pressure 152/63 [Left] O2 Sat by Pulse 95 98 97 Oximetry General appearance: Present: no acute distress, well-nourished - EENT Eyes: PERRL, EOM intact ENT: hearing intact, clear oral mucosa Ears: bilateral: normal - Neck Neck: supple, normal ROM - Respiratory Respiratory effort: normal Respiratory: bilateral: CTA - Breasts Breasts: normal - Cardiovascular Rhythm: regular Heart Sounds: Present: S1 & S2. Absent: gallop, rub Extremities: pulses intact, No edema, normal color, Full ROM - Gastrointestinal General gastrointestinal: Present: soft, non-tender, non-distended, normal bowel sounds - Genitourinary Female genitourinary: normal - Integumentary Integumentary: clear, warm, dry - Musculoskeletal Musculoskeletal: 1, strength equal bilaterally - Neurologic Neurologic: moves all extremities - Psychiatric Psychiatric: memory intact, appropriate mood/affect, intact judgment & insight - Labs CBC & Chem 7: 06/09/21 05:00 06/09/21 05:00 Labs: Abnormal lab results 06/08/21 06/09/21 06/09/21 Range/Units 18:57 05:00 05:00 WBC 3.5 L (4.5-11.0) K/mm3 RBC 3.06 L (3.65-5.03) M/mm3 MCV 101 H (79-97) fl MCH 35 H (28-32) pg MCHC 35 H (30-34) % [place] % (Auto) 10.9 H (0.0-7.3) % Eos % (Auto) 8.1 H (0.0-4.3) % Lymph # (Auto) 1.1 L (1.2-5.4) K/mm3 Seg Neutrophils # 1.7 L (1.8-7.7) K/mm3 Sodium 131 L D (137-145) mmol/L Chloride 94.1 L (98-107) mmol/L Carbon Dioxide 32 H (22-30) mmol/L BUN 24 H (7-17) mg/dL Creatinine 0.5 L (0.6-1.2) mg/dL Glucose 167 H (65-100) mg/dL POC Glucose 151 H (70-105) mg/dL AST 45 H (5-40) units/L Total Protein 5.8 L D (6.3-8.2) g/dL Albumin 3.2 L (3.9-5) g/dL 06/09/21 06/09/21 Range/Units 07:31 15:24 WBC (4.5-11.0) K/mm3 RBC (3.65-5.03) M/mm3 MCV (79-97) fl MCH (28-32) pg MCHC (30-34) % [place] % (Auto) (0.0-7.3) % Eos % (Auto) (0.0-4.3) % Lymph # (Auto) (1.2-5.4) K/mm3 Seg Neutrophils # (1.8-7.7) K/mm3 Sodium (137-145) mmol/L Chloride (98-107) mmol/L Carbon Dioxide (22-30) mmol/L BUN (7-17) mg/dL Creatinine (0.6-1.2) mg/dL Glucose (65-100) mg/dL POC Glucose 147 H 324 H (70-105) mg/dL AST (5-40) units/L Total Protein (6.3-8.2) g/dL Albumin (3.9-5) g/dL HEART Score - HEART Score Troponin: Troponin T 0.023 ng/mL (0.00-0.029) 06/09/21 00:29
--- NOTE | 2021-06-10 10:54 | Discharge Summary ---
Providers - Providers Date of Admission: 06/08/21 12:46 Date of discharge: 06/10/21 Attending physician: JOHNATHON HERNADNEZ 06/08/21 Consult to Cardiac Rehabilitation [CONS] Routine Reason For Exam: Phase I 06/08/21 12:49 Consult to Cardiology [CONS] Routine Consulting Provider: CHRISTINE ALATORRE Reason For Exam: nsstemi Primary care physician: LENS MATCHER Hospitalization Reason for admission: Hypoglycemia, AMS Condition: Fair Hospital course: 85 YO Female with HTN, DM presents to ED for evaluation. Patient was confused and lethargic the time of admission. Patient history taken from EMS staff, ED staff, as well as patient family who was made available by telephone for interview. As per family the patient was in her usual state of health around bedtime at 2100 hrs. Patient was found lying on the ground by family member on the day of admission. Patient was confused. EMS was notified and upon arrival the patient was found to be in distress with a serum glucose of 66. Patient was treated with an amp of D50 and transported to [facility] for further care and evaluation of the aforementioned symptoms. The patient was seen and evaluated in the emergency department. All laboratory studies reviewed. Patient was admitted with diagnosis of metabolic encephalopathy, hyponatremia syndrome, volume depletion, as well as elevated cardiac enzymes. Cardiology saw the patient in consultation and reported EKG was normal and no signs of acute ischemic changes. Echocardiogram revealed EF of 55 to 60% with mild aortic regurgitation, mild mitral regurgitation and right ventricular function normal. Cardiology recommended conservative treatment. Discharge diagnosis was felt to be secondary to metabolic encephalopathy secondary to hypoglycemia. Patient had unremarkable CT scan. Unremarkable cervical CT except for cervical spondylosis. This was done to evaluate fall. Metabolic encephalopathy has resolved. Dedicated discharge time 35 minutes Disposition: DC-01 TO HOME OR SELFCARE Final Discharge Diagnosis (Prints w/discharge instructions): NSTEMI, metabolic encephalopathy, hyponatremia, elevated troponin, hyperglycemia, vascular dementia Core Measure Documentation - Palliative Care Palliative Care/ Comfort Measures: Not Applicable - Core Measures Any of the following diagnoses?: none Exam - Constitutional Vitals: Temp Pulse Resp BP Pulse Ox -97.9 F L 71 18 130/86 90 06/10/21 08:57 06/10/21 08:57 06/10/21 08:57 06/10/21 08:57 06/10/21 08:57 General appearance: Present: no acute distress, well-nourished - EENT Eyes: Present: PERRL ENT: hearing intact, clear oral mucosa - Neck Neck: Present: supple, normal ROM - Respiratory Respiratory effort: normal Respiratory: bilateral: CTA - Cardiovascular Heart Sounds: Present: S1 & S2. Absent: rub, click - Extremities Extremities: pulses symmetrical, No edema Peripheral Pulses: within normal limits - Abdominal General gastrointestinal: Present: soft, non-tender, non-distended, normal bowel sounds Female genitourinary: Present: normal - Integumentary Integumentary: Present: clear, warm, dry - Musculoskeletal Musculoskeletal: gait normal, strength equal bilaterally - Psychiatric Psychiatric: appropriate mood/affect, intact judgment & insight - Neurologic Neurologic: CNII-XII intact, moves all extremities Plan Activity: advance as tolerated Weight Bearing Status: Weight Bear as Tolerated Diet: diabetic Follow up with: PRIMARY CARE, [Primary Care Provider] - 3-5 Days
--- NOTE | 2021-06-10 10:59 | Electrocardiograph Report ---
[facility] Test Date: 2021-06-09 Test Time: 07:31:08 Pat Name: FRANK DE JESUS Department: Room: A471 1 Gender: F Market Research Manager: SHERIF : 1935 Requested By: MARGRET NELSON Order Number: [id number] Reading MD: Mendez Salmeron Measurements Intervals [place] Rate: 66 P: 40 MT: 220 QRS: -18 QRSD: 145 T: 1 QT: 478 QTc: 502 Interpretive Statements Sinus rhythm Prolonged MT interval Right bundle branch block Compared to ECG 06/08/2021 11:57:58 No significant changes Electronically Signed On 06-10-2021 10:59:26 EDT by Mendez Salmeron
--- NOTE | 2021-06-10 11:06 | Electrocardiograph Report ---
[facility] Test Date: 2021-06-09 Test Time: 11:25:26 Pat Name: FRANK DE JESUS Department: Room: A471 1 Gender: F Box Stapler: SHERIF : 1935 Requested By: MARGRET NELSON Order Number: [id number] Reading MD: Mendez Salmeron Measurements Intervals [place] Rate: 69 P: 97 ND: 213 QRS: 3 QRSD: 145 T: -3 QT: 466 QTc: 499 Interpretive Statements Sinus rhythm Borderline prolonged ND interval Right bundle branch block Compared to ECG 06/09/2021 07:31:08 No significant changes Electronically Signed On 06-10-2021 11:06:10 EDT by Mendez Salmeron
--- NOTE | 2021-06-10 12:13 | Progress Note ---
Assessment and Plan NSTEMI type II * Troponins noted to be mildly elevated but downtrending 0.032->0.025->0.023. EKG was normal sinus rhythm 87 with no signs of acute ischemic changes. AMI ruled out * Patient sinus rhythm on monitor with no events * Echo 06/08/2021-EF 55 to 60%, mild aortic regurgitation, mild mitral regurgitation, right ventricular systolic function is normal Altered mental status in setting of hypoglycemia * Patient has hx of DM and found to be very hypoglycemic * Manage per primary team Due to patients age and comorbidities recommend conservative management. Patient seen in conjunction with Dr. Jaguar Stewart. Will continue to follow - Patient Problems (1) Altered mental state Current Visit: Yes Status: Acute (2) Dehydration Current Visit: Yes Status: Acute (3) Dementia Current Visit: Yes Status: Acute (4) Elevated troponin Current Visit: Yes Status: Acute (5) Hyperkalemia Current Visit: Yes Status: Acute (6) Hypoglycemia Current Visit: Yes Status: Acute (7) Hyponatremia Current Visit: Yes Status: Acute Subjective Date of service: 06/10/21 Principal diagnosis: Stroke Interval history: Patient sitting in bed and is more alert and oriented today. She has no complaints of chest pain or SOB Sinus 80s with no events on monitor Objective Last Vital Signs Temp -97.9 F L 06/10/21 08:57 Pulse 67 06/10/21 11:11 Resp 17 06/10/21 11:11 BP 130/86 06/10/21 08:57 Pulse Ox 98 06/10/21 11:11 - Physical Examination General: No Apparent Distress HEENT: Positive: PERRL Neck: Positive: trachea midline Cardiac: Positive: Reg Rate and Rhythm Lungs: Positive: Normal Breath Sounds Neuro: Positive: Grossly Intact Abdomen: Positive: Soft, Active Bowel Sounds Skin: Negative: Rash, Suspicious Lesions, Ulceration Extremities: Present: upper extr. pulses, lower extr. pulses, edema, +1 Edema (RLE) - Imaging and Cardiology EKG: report reviewed, image reviewed Echo: report reviewed - Telemetry EKG Rhythm: Sinus Rhythm - EKG Sinus rhythms and dysrhythmias: sinus rhythm
[2021-06-10 16:30] VITALS: BP 151/72
== END 2021-06-10 17:54 | disposition home health service (06) | DRG 637 ==
LOC: EDSEX → ED 09:02 → 4A 12:46
PROVIDERS: ADMIT Internal Medicine; ATTEND Hospitalist
DX: E11.649 Type 2 diabetes mellitus with hypoglycemia without coma (principal); G93.41 Metabolic encephalopathy; I21.A1 Myocardial infarction type 2; E87.1 Hypo-osmolality and hyponatremia; E86.0 Dehydration; E87.5 Hyperkalemia; I10 Essential (primary) hypertension; F01.50 Vascular dementia, unspecified severity, without behavioral disturbance, psychotic disturbance, mood disturbance, and anxiety; R74.01 Elevation of levels of liver transaminase levels; Z87.440 Personal history of urinary (tract) infections; Z82.49 Family history of ischemic heart disease and other diseases of the circulatory system; Z83.3 Family history of diabetes mellitus
CPT/HCPCS: 36415; 70450; 71045; 72125; 72170; 80053; 80061; 80307; 80320; 81001; 82140; 82550; 82553; 82962; 83690; 83735; 83880; 84484; 85025; 85610; 85670; 85730; 93005; 93306; 93970; G0378; G0480; J1200; J1630; J7030